=== PATIENT | female | born 1965 | race Caucasian/White ===

== ENCOUNTER 2020-09-26 11:47 | Emergency (ER) | payer OTHER, SELFPAY ==
--- NOTE | ~2020-09-26 | XR_ITS ---
EXAMINATION: XR foot LT min 3V DATE: 09/26/2020 12:24 INDICATION: One week of the anterior left foot pain TECHNIQUE: Dorsoplantar, two oblique and lateral views of the left foot were obtained. COMPARISON: None. FINDINGS: Alignment is normal. No fracture. Joint spaces are normal. No cortical erosions or periosteal reactio n. Mild soft tissue swelling dorsal to the heads of the metatarsals. No soft tissue gas or radiopaque foreign bodies. No left ankle joint effusion. IMPRESSION: 1. No osseous abnormality. Reviewed, dictated and finalized at location A. T BEATER IMPRESSION: 1. No osseous abnormality.
[2020-09-26 12:00] VITALS: BP 160/100; PULSE 73; RESP 16; TEMP 36.7; O2SAT 100
--- NOTE | 2020-09-26 12:03 | ED.GENADULT ---
HPI - General Adult General Chief complaint: Extremity Injury, Lower Stated complaint: Extremity Injury, Lower Time Seen by Provider: 09/26/20 12:04 Source: patient Mode of arrival: ambulatory Limitations: no limitations History of Present Illness HPI narrative: 55-year-old female patient presents to the [facility] with complaints of left foot pain for the past week. Patient denies any specific injury to the foot that she is aware of. Patient states that she wears wedges a lot when she goes to work. Patient states that she noticed about a week ago when she came home and took off her wedges that standing flat-footed increase her pain. Patient states when she is not standing her pain is about a 4 out of 10 and describes it as a throbbing however when she does stand on the left foot it increases to about a 10 out of 10. Patient denies taking anything for her pain due to the fact that she does not like to take medications. Patient states that her foot does feel better when she is in wedges except for the past couple of days she has not been able to tolerate the wedges either. Related Data Allergies Allergy/AdvReac Type Severity Reaction Status Date / Time No Known Allergies Allergy Verified 09/26/20 12:13 Review of Systems Review of Systems: Narrative: CONSTITUTIONAL: Denies fever, chills, or sweats. EYES: Denies visual changes, redness, or discharge. ENT: Denies rhinorrhea, congestion, sore throat, or otalgia. CARDIOVASCULAR: Denies chest pain, palpitations, or edema. RESPIRATORY: Denies cough or dyspnea. GASTROINTESTINAL: Denies abdominal pain, nausea, vomiting, or diarrhea. GENITOURINARY: Denies dysuria or hematuria. SKIN: Denies rash or itching. MUSCULOSKELETAL: Denies back pain, joint pain, or myalgia. Positive left foot pain x1 week NEUROLOGIC: Denies headache, numbness, or weakness. PSYCHIATRIC: Denies anxiety or depression. PMFSH Social History Social History Gender identity (if verbalized by the patient): Female Comments At the time of my signature I agree with nursing past medical history, surgical, social, and family history. There is no relevant family history pertinent to the presenting complaint. Exam Narrative: Exam Narrative: GENERAL: Well-appearing, well-nourished, and in no acute distress. HEAD: Normocephalic, atraumatic. EYES: PERRLA and EOMI. ENT: Nares clear, no rhinorrhea or epistaxis. Mucous membranes moist. NECK: Supple. No lymphadenopathy CHEST: Clear to auscultation. No respiratory distress. HEART: Regular rate and rhythm. No murmur heard. Normal peripheral pulses. ABDOMEN: Soft, nontender, nondistended, normal active bowel sounds. EXTREMITIES: Patient able to bear weight and ambulate but has increased pain to the left foot. No surface trauma, ecchymosis, erythema, lesions, ulcers or break in skin integrity. Patient does have tenderness top of the midfoot right under the second third fourth and fifth toes especially with palpation. There is slight swelling noted under the second and third toe. The L foot is without obvious asymmetry or deformity when compared to the R foot. No bony step-off, nontender to palpation over the toes, or hindfoot or sole. Normal plantar/dorsiflexion, inversion/eversion. Distal motor and neurovascular status are intact SKIN: Warm, dry, no rash. NEURO: No focal deficits. Alert and oriented x3. Course Reevaluation(s) Reevaluation #1: Reevaluated patient. Notified her that her x-ray is negative for any acute fractures of the left foot. Discussed with patient that this most likely is some type of plantar fasciitis. Discussed with patient I will go ahead and send her home with some naproxen to help with the pain as well as some exercises to do to help decrease plantar fasciitis pain. Discussed with patient that she needs to be wearing good supportive shoes because she does have a high arch. Discussed with her that if she has
[2020-09-26 12:13] VITALS: BP 160/100; PULSE 73; RESP 16; TEMP 36.7; O2SAT 100
== END 2020-09-26 12:44 | disposition home or self-care (01) ==
PROVIDERS: Emergency Provider Nurse Practitioner Family
DX: M72.2 Plantar fascial fibromatosis (principal)
CPT/HCPCS: 73630; 99213; G0463

== ENCOUNTER 2022-06-07 19:04 | Emergency (ER) | payer OTHER, BC, SELFPAY ==
--- NOTE | ~2022-06-07 | XR_ITS ---
EXAM: XR foot RT min 3V DATE: 06/07/2022 19:35 HISTORY: STEPPED OFF CURB 06/07/22. LATERAL PAIN SINCE. . COMPARISON: None available. FINDINGS: Decreased mineralization. Curvilinear ossific fragment projecting along the superior surfa ce of the anterior talus and the superior navicular, seen only in the lateral view. Ossific fragment adjacent to the lateral aspect of the anterior calcaneus, seen only in the frontal view. No lytic or blastic lesion. Joint spaces are maintained. No erosion or periosteal change. Soft tissues within nor mal limits. IMPRESSION: Anterior capsular avulsion fracture. Possible talonavicular capsular avulsion. Small frac ture fragment projecting lateral to the anterior calcaneal process. Reviewed, dictated and finalized at location K. IMPRESSION: Anterior capsular avulsion fracture. Possible talonavicular capsula r avulsion. Small fracture fragment projecting lateral to the anterior calcanea l process.
[2022-06-07 19:14] VITALS: BP 194/91; PULSE 64; RESP 16; TEMP 36.8; O2SAT 100
--- NOTE | 2022-06-07 19:29 | ED.LOWEXIN ---
HPI - Extremity Injury (Lower) General Chief Complaint: Extremity Injury, Lower Stated Complaint: Right Ankle Injury Time Seen by Provider: 06/07/22 19:29 Source: patient Mode of arrival: ambulatory Limitations: no limitations History of Present Illness HPI Narrative: Mrs. Rea is a 37-year-old female patient presenting to the clinic today with complaints of right ankle pain/injury. She reports she was walking from work and stepped on some concrete and part of her foot was on the concrete part was not on the concrete therefore she rolled her ankle. She complains of lateral foot/ankle pain. Related Data Home Medications Medication Instructions Recorded Confirmed No Home Medications 06/07/22 06/07/22 Allergies Allergy/AdvReac Type Severity Reaction Status Date / Time No Known Allergies Allergy Verified 06/07/22 19:19 Review of Systems Review of Systems: Pertinent positives per HPI. Patient denies any fever, chills, rash, headache, visual changes, dizziness, cough, runny nose, sore throat, shortness of breath, chest pain, palpitations, nausea, vomiting, diarrhea, constipation, abdominal pain, or any urinary issues. PMFSH Social History Social History Gender identity (if verbalized by the patient): Female Comments At the time of my signature, I reviewed and agree with the nursing past medical, surgical, social, and family history. There is no relevant family history pertinent to the patient complaint. Exam Narrative: General: Well-developed, well nourished, in no apparent distress Head: Normocephalic, atraumatic. Cardio: Regular rate and rhythm, s1 and s2 normal, no murmur appreciated. Resp: Clear to auscultation bilaterally, no rhonchi, rales, wheezing or rubs. Musculoskeletal: No deformity,tender to palpation over the right lateral aspect of the ankle and foot, limited range of motion due to pain, muscle strength strong and equal, peripheral pulse strong, no edema, no cyanosis, normal gait and station Course Course Emergency Course: Portions of this record may have been created with voice recognition software. Level of Care: Express Care Visit Vital Signs Vital signs: Vital Signs Temperature 36.8 C 06/07/22 19:14 Pulse Rate 64 06/07/22 19:14 Respiratory Rate 16 06/07/22 19:14 Blood Pressure 194/91 H 06/07/22 19:14 Pulse Oximetry 100 06/07/22 19:14 Oxygen Delivery Room Air 06/07/22 19:14 Temperature 36.8 C 06/07/22 19:14 Pulse Rate 64 06/07/22 19:14 Respiratory Rate 16 06/07/22 19:14 Blood Pressure 194/91 H 06/07/22 19:14 Pulse Oximetry 100 06/07/22 19:14 Oxygen Delivery Room Air 06/07/22 19:14 Vital signs reviewed MDM - Extremity Injury (Lower) MDM Narrative Medical decision making narrative: At the time of visit patient is resting comfortably on the exam table. X-ray was performed and shows a capsular avulsion fracture and a avulsion fracture possibly to the talonavicular bone. Measures were discussed with the patient she voiced understanding of discharge instructions. Ortho referral was given and patient was placed in an [place] wrap and a postop shoe and she already has a knee runner that she is using. Differential Diagnosis Differential diagnosis: Likely fracture of toe (Foot sprain) and other (Fracture) Imaging Data Radiologist's impression: [address] [place] [id number] XRay Report Signed Patient: Rosa Maria Rea : 1965 MR#: [id number] Age/Sex: 57 / F Acct:[id number] Loc: [facility]? ? ADM Date: 06/07/22Attending Dr: Ordering Physician: Steve Gamez APRN Date of Service: 06/07/22 Procedure(s): XR foot RT min 3V Accession Number(s): [id number] cc: Steve Gamez APRN; CABLE ARMORER PHYSICIAN~ EXAM:? XR foot RT min 3V DATE: 06/07/2022 19:35 HISTORY: STEPPED OFF CUR
== END 2022-06-07 20:20 | disposition home or self-care (01) ==
PROVIDERS: Emergency Provider Nurse Practitioner Family
DX: S92.901A Unspecified fracture of right foot, initial encounter for closed fracture (principal); X50.9XXA Other and unspecified overexertion or strenuous movements or postures, initial encounter
CPT/HCPCS: 73630; 99213; 99214; G0463